=== PATIENT | female | born 1985 | race African-American/Black ===

== ENCOUNTER 2017-03-02 22:10 | Emergency (ER) | payer MEDICAID ==
[~2017-03-02 22:10] MED LIST: MOTRIN600 MG PO; PERCOCET 5/3251 TA1 PO
== END 2017-03-03 00:31 | disposition home or self-care (01) ==
LOC: D.ER 22:10
DX: L02.412 Cutaneous abscess of left axilla (principal); L03.112 Cellulitis of left axilla; L73.9 Follicular disorder, unspecified

== ENCOUNTER 2018-12-01 18:42 | Outpatient (CLI) | payer MEDICAID ==
[2018-12-01 19:44] LABS: BASOPHILS 0.3 % (0-2); EOSINOPHILS 0.8 % (0-7); HEMATOCRIT 30.6 % (36.0-48.0); HEMOGLOBIN 9.7 g/dL (12-16); IMMATURE GRANULOCYTES 2.4 % (0-5); MCH 28.8 pg (26.0-34.0); MCHC 31.7 g/dL (31.0-37.0); MCV 90.8 fL (80.0-100.0); MONOCYTES 5.1 % (2-11); NEUTROPHILS 77.4 % (40-80); RBC 3.37 10x6/uL (4.00-5.40); WBC 11.9 10x3/uL (4.8-10.8)
[2018-12-01 19:51] LABS: PLATELET COUNT 155 10x3/uL (130-400)
[2018-12-01 19:51] LABS: APPEARANCE CLEAR (CLEAR); COLOR YELLOW (YELLOW); SPECIFIC GRAVITY 1.015 (1.005-1.020)
[2018-12-01 19:52] LABS: BILIRUBIN NEGATIVE (NEGATIVE); EPITHELIAL CELLS 0-5 /hpf (0-5); GLUCOSE NEGATIVE (NEGATIVE); KETONE NEGATIVE (NEGATIVE); NITRITE NEGATIVE (NEGATIVE); PROTEIN NEGATIVE (NEGATIVE); RED CELLS - URINE NONE SEEN /hpf (0-5); UROBILINOGEN NORMAL (NORMAL); WHITE CELLS - URINE 0-5 /hpf (0-5)
== END 2018-12-02 10:00 | disposition home or self-care (01) ==
LOC: D.LDO 18:42 → D.LD 23:40 → D.LDO 12-02 10:00
PROVIDERS: Obstetrics & Gynecology
DX: O26.893 Other specified pregnancy related conditions, third trimester (principal); Z3A.30 30 weeks gestation of pregnancy

== ENCOUNTER 2018-12-22 18:54 | Outpatient (CLI) | payer MEDICAID ==
[2018-12-22 19:38] LABS: APPEARANCE CLEAR (CLEAR); BILIRUBIN NEGATIVE (NEGATIVE); COLOR YELLOW (YELLOW); GLUCOSE NEGATIVE (NEGATIVE); KETONE NEGATIVE (NEGATIVE); NITRITE NEGATIVE (NEGATIVE); PROTEIN NEGATIVE (NEGATIVE); SPECIFIC GRAVITY 1.015 (1.005-1.020); UROBILINOGEN NORMAL (NORMAL)
[2018-12-22 19:40] LABS: BACTERIA FEW /hpf (NONE SEEN); RED CELLS - URINE 0-5 /hpf (0-5); WHITE CELLS - URINE 0-5 /hpf (0-5)
[2018-12-22 20:09] LABS: UDS - AMPHET NEGATIVE QUAL (NEGATIVE); UDS - BARB NEGATIVE QUAL (NEGATIVE); UDS - BENZO NEGATIVE QUAL (NEGATIVE); UDS - COCAINE NEGATIVE QUAL (NEGATIVE); UDS - OPIATE NEGATIVE QUAL (NEGATIVE); UDS - PCP NEGATIVE QUAL (NEGATIVE); UDS - THC NEGATIVE QUAL (NEGATIVE)
[2019-01-03 21:28] VITALS: BMI 43.3
== END 2018-12-22 22:19 | disposition home or self-care (01) ==
LOC: D.LDO 18:54
PROVIDERS: Obstetrics & Gynecology
DX: O26.893 Other specified pregnancy related conditions, third trimester (principal); Z3A.33 33 weeks gestation of pregnancy; R10.30 Lower abdominal pain, unspecified

== ENCOUNTER 2019-01-02 22:09 | Inpatient (IN) | payer MEDICAID ==
[~2019-01-02] VITALS: Ht 154.9 cm; Wt 104.1 kg
[2019-01-02] MEDS ORDERED: PRENATAL VIT (22:24)
--- NOTE | 2019-01-02 23:10 | NUR ---
HEART TONES OBTAINED BY ERP AT 154.
--- NOTE | 2019-01-02 23:49 | NUR ---
[facility] WALKER LEYVA #[id number] HERE FOR REPORT.
[2019-01-03] VITALS (17 sets, daily range): BP systolic 113–163; BP diastolic 70–101; Ht 154.9 cm; Wt 104.1 kg
[2019-01-03 00:32] LABS: HEMATOCRIT 34.3 % (36.0-48.0); HEMOGLOBIN 11.3 g/dL (12-16); LYMPHOCYTES 10.2 % (15-50); MCH 28.2 pg (26.0-34.0); MCHC 32.9 g/dL (31.0-37.0); MCV 85.5 fL (80.0-100.0); MEAN PLATELET VOLUME 10.8 fL (7.4-10.4); NEUTROPHILS 82.9 % (40-80); PLATELET COUNT 214 10x3/uL (130-400); RBC 4.01 10x6/uL (4.00-5.40); RDW 13.8 % (11.5-14.5); WBC 12.4 10x3/uL (4.8-10.8)
--- NOTE | 2019-01-03 01:00 | NUR ---
REPORT CALLED TO L&D NURSE ROBERT MILLS.
[2019-01-03 06:39] LABS: HEMATOCRIT 34.5 % (36.0-48.0); HEMOGLOBIN 11.1 g/dL (12-16); MCH 28.2 pg (26.0-34.0); MCHC 32.2 g/dL (31.0-37.0); MEAN PLATELET VOLUME 11.6 fL (7.4-10.4); PLATELET COUNT 253 10x3/uL (130-400); RBC 3.94 10x6/uL (4.00-5.40); RDW 14.1 % (11.5-14.5); WBC 14.2 10x3/uL (4.8-10.8)
[2019-01-03 06:41] LABS: MCV 87.6 fL (80.0-100.0)
[2019-01-03 06:52] LABS: INR 1.18 (0.85-1.17); PROTIME 14.5 SECONDS (11.6-15.0)
[2019-01-03 06:53] LABS: APTT 28.1 SECONDS (22.8-39.4)
[2019-01-03 07:47] LABS: LYMPHOCYTES 8 % (15-50); MONOCYTES 5 % (2-11); NEUTROPHILS 87 % (40-80); PLATELET ESTIMATE NORMAL
--- NOTE | 2019-01-03 08:20 | NUR ---
received pt to labor and delivery post section by dr. brown. see flowsheet. pt has large white dressing over bikini line incision, c/d/i. ice pack placed over gown to incision. abdomen palpates soft. fundus firm, u/1, small rubra lochia, no clots expressed. pt has collins cath in place with 400 ml's dark yellow urine noted in urometer. pt provided with incentive spirometer, with instructions on use. pt also coughing and deep breathing exercises well. pt states she is not in pain at this time. medications reviewed with pt. pt requests ice water, served. sr up x 2, call light and phone within reach.
[2019-01-03 08:47] LABS: UDS - AMPHET POSITIVE QUAL (NEGATIVE); UDS - BARB NEGATIVE QUAL (NEGATIVE); UDS - BENZO NEGATIVE QUAL (NEGATIVE); UDS - COCAINE NEGATIVE QUAL (NEGATIVE); UDS - OPIATE NEGATIVE QUAL (NEGATIVE); UDS - PCP NEGATIVE QUAL (NEGATIVE); UDS - THC NEGATIVE QUAL (NEGATIVE)
--- NOTE | 2019-01-03 09:00 | NUR ---
right ac saline lock dc'd with cath intact.
--- NOTE | 2019-01-03 09:00 | NUR ---
fundus firm, u/1, small rubra lochia, no clots. abdomen palpates soft. pt denies sob or difficulty breathing. collins cath noted to have 600 ml's total urine output, dark yellow urine noted in urometer. srup x 2, call light and phone within reach.
--- NOTE | 2019-01-03 09:30 | NUR ---
fundus firm, u/1, small rubra lochia, no clots expressed. pericare done with warm wet washcloths, towels/chux changed. pt repositioned from her left tilt tilt to her right, pillows placed behind back for support and comfort. pt denies sob or difficulty breathing. sr up x 2, call light and phone within reach. pt's mother at bedside.
[2019-01-03 10:03] LABS: APPEARANCE CLEAR (CLEAR); BILIRUBIN NEGATIVE (NEGATIVE); COLOR DK YELLOW (YELLOW); GLUCOSE NEGATIVE (NEGATIVE); KETONE LARGE mg/dL (NEGATIVE); NITRITE NEGATIVE (NEGATIVE); PROTEIN TRACE mg/dL (NEGATIVE); SPECIFIC GRAVITY 1.015 (1.005-1.020)
[2019-01-03 10:05] LABS: BACTERIA MODERATE /hpf (NONE SEEN); EPITHELIAL CELLS 0-5 /hpf (0-5); MUCUS <1+ /lpf (NONE SEEN); RED CELLS - URINE 0-5 /hpf (0-5); WHITE CELLS - URINE OCC /hpf (0-5)
--- NOTE | 2019-01-03 11:00 | NUR ---
fundus firm, u/2, small rubra lochia, no clots exressed. abdomen palpates soft, pt denies nausea, denies sob, and denies difficulty breathing. clear liquid diet served by dietary. pt awake and sitting up in the bed. incentive spirometer encouraged and pt demonstrates well, pt does coughing and deep breathing x 2. large grape juice served per pt's requests. sr up x 2, call light and phone within reach.
[2019-01-03 12:28] LABS: BASOPHILS 0.3 % (0-2); EOSINOPHILS 0 % (0-7); HEMATOCRIT 31.6 % (36.0-48.0); HEMOGLOBIN 10.4 g/dL (12-16); IMMATURE GRANULOCYTES 0.8 % (0-5); LYMPHOCYTES 5.7 % (15-50); MCH 28.3 pg (26.0-34.0); MCHC 32.9 g/dL (31.0-37.0); MCV 86.1 fL (80.0-100.0); MEAN PLATELET VOLUME 11.4 fL (7.4-10.4); MONOCYTES 6.3 % (2-11); NEUTROPHILS 86.9 % (40-80); PLATELET COUNT 224 10x3/uL (130-400); RBC 3.67 10x6/uL (4.00-5.40); RDW 14.1 % (11.5-14.5)
[2019-01-03 12:30] LABS: WBC 19.4 10x3/uL (4.8-10.8)
--- NOTE | 2019-01-03 15:00 | NUR ---
to pt's room, pt is resting with eyes closed, pt awakened, states she is not hurting at this time. served fresh ice water per her request. fundus firm, u/1, small rubra lochia, no clots expelled. pericare done with warm wet washcloths, towels/chux changed. pt denies sob or difficulty breathing. pt's right eye continues to swollen, and various cuts/abrasions/bruises noted all over body. pt's demeanor very quiet, pt soft spoken, and answers questions in yes/no responses, pt is a poor historian. srup x 2, call light and phone within reach.
--- NOTE | 2019-01-03 17:53 | NUR ---
report of h/h, platelet counts, am/noon given to dr. brown. report of bp readings given to md. md questioning if pt was on home bp medications, pt denies diagnosis of high bp, and states she has never been on bp medications at home. md made aware of what pt has said. telephone order to run pih labwork, and to start labetalol 100 mg one po tid, and report bp greater than 155/[address] brown.
--- NOTE | 2019-01-03 17:59 | NUR ---
lab notified of stat draw.
--- NOTE | 2019-01-03 18:45 | NUR ---
FUNDUS FIRM, U/1, SMALL RUBRA LOCHIA, NO CLOTS. PERICARE DONE WITH WARM WET WASHCLOTHS, TOWELS/PERIPADS CHANGED. LOPEZ CATH EMPTIED WITH 1000 ML TOTAL URINE OUTPUT, DARK YELLOW URINE NOTED. ABDOMEN PALPATES SOFT. FRESH ICE PACK PLACED OVER GOWN TO INCISION, BANDAGE REMAINS, C/D/I. SMALL ICE PACK PROVIDED FOR PT TO USE ON RIGHT ORBITAL AREA, WHICH IS MORE SWOLLEN AND PURPLE THAN HER LEFT, WHICH IS SWOLLEN AND PURPLE WELL. PT HAS CLEAR LIQUID TRAY ON BEDSIDE TABLE, HAS EATEN APPROX 75%. PT DENIES SOB, OR DIFFICULTY BREATHING. PT DENIES ALL OTHER NEEDS AT THIS TIME. SR UP X2, CALL LIGHT AND PHONE WITHIN REACH.
[2019-01-03 19:00] LABS: BASOPHILS 0.2 % (0-2); EOSINOPHILS 0.1 % (0-7); HEMATOCRIT 34.3 % (36.0-48.0); HEMOGLOBIN 11.2 g/dL (12-16); IMMATURE GRANULOCYTES 0.3 % (0-5); LYMPHOCYTES 7.2 % (15-50); MCH 28.6 pg (26.0-34.0); MCHC 32.7 g/dL (31.0-37.0); MCV 87.5 fL (80.0-100.0); MONOCYTES 8.1 % (2-11); NEUTROPHILS 84.1 % (40-80); PLATELET COUNT 229 10x3/uL (130-400); RBC 3.92 10x6/uL (4.00-5.40); RDW 14.2 % (11.5-14.5); WBC 16.9 10x3/uL (4.8-10.8)
--- NOTE | 2019-01-03 19:07 | NUR ---
BEDSIDE SHIFT REPORT COMPLETED WITH ROBERT AL AT THIS TIME.
--- NOTE | 2019-01-03 19:12 | NUR ---
ADMISSION HISTORY COMPLETED AT THIS TIME.
--- NOTE | 2019-01-03 19:12 | NUR ---
PATIENT LYING IN BED WITH EYES CLOSED, FRESH ICE PACK PLACED TO ABDOMEN, ICE PACK REMAINS IN PLACE TO RIGHT SIDE OF FACE DUE TO SWELLING AND BRUISES. ICE WATER AND APPLE JUICE PROVIDED PER PT REQUEST. PT RATES PAIN 7/10, ENCOURAGED TO USE MANAGER PERSONAL. BED REMAINS LOCKED IN LOW POSITION, SIDE RAILS UPX2, CALL THOMSON AND TRAY TABLE IN REACH. WILL CONTINUE TO MONITOR.
[2019-01-03 19:33] LABS: ALBUMIN 2.2 g/dL (3.4-5.0); ALKALINE PHOSPHATASE 150 U/L (46-116); ALT (SGPT) 40 U/L (10-68); BILIRUBIN - TOTAL 0.85 mg/dL (0.2-1.3); CALC OSMOLALITY 274 mosm/kg (275-300); CALCIUM 8.2 mg/dL (8.5-10.1); CARBON DIOXIDE 19.2 mmol/L (21.0-32.0); CHLORIDE - SERUM 104 mmol/L (98-107); CREATININE - SERUM 0.8 mg/dL (0.6-1.3); GLUCOSE 106 mg/dL (74-106); POTASSIUM - SERUM 3.1 mmol/L (3.5-5.1); PROTEIN - SERUM 5.9 g/dL (6.4-8.2); SODIUM 139 mmol/L (136-145); UREA NITROGEN 5 mg/dL (7-18); URIC ACID 8.8 mg/dL (2.6-7.2); eGFR NON AFRICAN AMERICAN 89 mL/min (90-120)
--- NOTE | 2019-01-03 21:28 | NUR ---
PATIENT LYING IN A RIGHT TILT, BOTH EYES NOTED TO BE SWOLLEN AND BRUISED, ICE PACK REMAINS TO RIGHT SIDE OF FACE. LOW TRANSVERSE ABDOMINAL DRESSING NOTED TO BE CLEAN DRY AND INTACT. FUNDUS ML/-2/FIRM AND BLEEDING NOTED TO BE SMALL WITH ONE DIME SIZED CLOT. SCD BOOTS REMAIN IN PLACE HOOKED UP TO A WORKING MACHINE. IV TO LEFT AC INFUSING PER MD ORDER. SURGICAL ASST AVAILABLE AND LOPEZ CATHETER IN PLACE, DRAINING TO GRAVITY. BED REMAINS LOCKED IN LOW POSITION, SIDE RAILS UPX2, CALL THOMSON,SURGICAL ASST BUTTON AND TRAY TABLE IN REACH.
--- NOTE | 2019-01-03 21:28 | NUR ---
PATIENT LYING IN BED WITH EYES CLOSED, EASILY AROUSED TO VERBAL, RATES HER PAIN 7/10. PT ENCOURAGED TO USE GAS PIPE LAYER FOR PAIN CONTROL. SHIFT ASSESSMENT AND ADMISSION HISTORY COMPLETED AT THIS TIME. SEE FLOWSHEETS.
--- NOTE | 2019-01-03 21:40 | NUR ---
NEW 1000ML BAG OF NS WITH 20UNITS OF PITOCIN HUNG AT 125ML/HR PER MD ORDERS AT THIS TIME, SEE EMAR.
[2019-01-04] VITALS (8 sets, daily range): BP systolic 114–135; BP diastolic 67–83
--- NOTE | 2019-01-04 00:35 | NUR ---
PT REPOSITIONED TO LEFT TILT. TORADOL 30MG SLOW IVP PER MD ORDERS. 100ML DARK MACY URINE NOTED IN UROMETER. PT DENIES NEEDS, WILL CONTINUE TO MONITOR.
--- NOTE | 2019-01-04 02:31 | NUR ---
LABETALOL 100MG PO ADMINISTERED PO PER MD ORDERS. PERICARE PERFORMED, BLEEDING SMALL, RUBRA, ONE STRINGY DIME SIZED CLOT NOTED, DRESSING REMAINS CLEAN DRY AND INTACT. PADS CHANGED AND FRESH ICE PACK PLACED TO ABDOMEN, SECOND ICE PACK PROVIDED FOR PATIENTS FACE NEEDED/DESIRED BY PT. BE REMAINS LOW IN LOCKED POSITION, SIDERAILS UPX2, CALL THOMSON AND TRAY TABLE IN REACH. WILL CONTINUE TO MONITOR.
--- NOTE | 2019-01-04 03:50 | NUR ---
PATIENT PROVIDED WITH APPLE JUICE AND PUDDING PER REQUEST. DENIES OTHER NEEDS WILL CONTINUE TO MONITOR.
--- NOTE | 2019-01-04 05:00 | NUR ---
AUBREY RN TO BEDSIDE TO INQUIRE IF PT WANTS TO SEE . PT SNORING, WILL CHECK BACK LATER.
--- NOTE | 2019-01-04 06:44 | NUR ---
toradol 30mg slow ivp at this time. iv fluids complete, d/c'd at this time. nuclear reactor engineer d/c'd as well.
--- NOTE | 2019-01-04 07:00 | NUR ---
REPORT TO AM SHIFT TO ASSUME PATIENT CARE.
[2019-01-04 07:29] LABS: RAPID PLASMA REAGIN Non Reactive (Non Reactive)
--- NOTE | 2019-01-04 07:45 | NUR ---
Pt is awake and alert, rates pain at 2/10. Assessment as charted on flowsheet. Fundus firm upon massage at u/u with light lochia noted, seth pad changed at this time. Arias cath to bedside drain wit 30ml dark natalie urine noted, pt encouraged to increase fluids. SCD bilat as ordered. Bikini incision clean and dry, pt is asking about her baby girl this am and requesting to see her if possible, nursery number provided and will let nursery nurse know of pt request. Pt states her understaning that she would now be asking for pain medicaiton when desired. Side rails up x 2 with phone and call light within her reach.
[2019-01-04 08:26] LABS: BASOPHILS 0.1 % (0-2); EOSINOPHILS 0.2 % (0-7); HEMATOCRIT 32.2 % (36.0-48.0); HEMOGLOBIN 10.4 g/dL (12-16); IMMATURE GRANULOCYTES 0.5 % (0-5); LYMPHOCYTES 8.7 % (15-50); MCHC 32.3 g/dL (31.0-37.0); MCV 86.8 fL (80.0-100.0); MEAN PLATELET VOLUME 11.5 fL (7.4-10.4); MONOCYTES 7.1 % (2-11); NEUTROPHILS 83.4 % (40-80); PLATELET COUNT 227 10x3/uL (130-400); RBC 3.71 10x6/uL (4.00-5.40); RDW 14.3 % (11.5-14.5)
--- NOTE | 2019-01-04 08:30 | NUR ---
Infant taken to room via crib by nursery nurse. pt ask to have time with infant and will call when she is ready to get up from bed.
--- NOTE | 2019-01-04 10:00 | NUR ---
pt calls nursery to come pick in up, Called to room, requesting pain med, she rates at 6/10, also requesting apple juice.
--- NOTE | 2019-01-04 10:40 | NUR ---
Arias cath removed, cath noted to be intact. 200ml dark concentrated urine noted. Pt is able to move herself up to sitting on side of the bed without complaint of dizziness or nausea. Amb to bathroom per self and able to void 200ml without complaint.
--- NOTE | 2019-01-04 10:45 | NUR ---
pt provided with warm wet wash cloths and is able to do seth care. gown changed and assistance given with peripad/briefs. Verbal teaching given along with demonstrating how to use seth pad to cover incision site. Bed linens changed while pt in bathroom. amb back to bed per self and able to position for comfort. side rails up x 2 call light in reach and lights turned down per her request.
--- NOTE | 2019-01-04 11:30 | NUR ---
Pt calls out requesting pain med, states she turned over and now burning at incision site. Rates at 07/30, meds given as charted on emar.
--- NOTE | 2019-01-04 13:00 | NUR ---
RECEIVED REPORT FROM ROBERT PHOENIX. PT SITTING UP IN BED. VISITS WITH PT MOTHER AT THIS TIME. DENIES C/O PAIN OR NEEDS.
--- NOTE | 2019-01-04 14:14 | NUR ---
PT SITTING UP IN BED. VSS. HRRR WITHOUT AUDIBLE MURMUR. BBS CLEAR. BS X 4. ABDOMEN SOFT/SLIGHTLY DISTENDED. PT DENIES PASSING GAS. NO BM YET. PT STATES HAS VOIDED X 1 SINCE LOPEZ REMOVED. ABDOMINAL INCISION WITH NO REDNESS, SWELLING OR DRAINAGE NOTED. PERIPAD CHANGED. FUNDUS FIRM AT U/U. RUBRA LOCHIA SMALL AMT. NO CLOTS NOTED. NEG HOMANS' SIGN. PPP. MILD NON PITTING EDEMA NOTED TO BLE. SL TO LEFT AC. SITE CLEAR. PT STATES PAIN OF "5" ON 0-10 PAIN SCALE. DECLINES PAIN MED AT THIS TIME. PT OOB AND AMB TO BR TO VOID. VOIDS 300 ML OF CONCENTRATED YELLOW URINE. PERICARE DONE PER PT. PT BACK TO BED. GRCAY ACTIVITY WELL. SR UP X 2. CALL LIGHT IN REACH. PT NOTED TO HAVE BRUISING TO FACE, BOTH EYES. LEFT AND RIGHT ARMS, LEFT THIGH, LEFT LOWER LEG, RIGHT LOWER LEG, ABDOMEN. ABRASIONS NOTED TO FACE, ABDOMEN BOTH LOWER LEGS.
--- NOTE | 2019-01-04 15:08 | NUR ---
PT REQUESTS AND RECEIVES ORANGE JUICE.
--- NOTE | 2019-01-04 15:38 | NUR ---
PT C/O PAIN "ALL OVER" OF "7" ON 0-10 PAIN SCALE. MOTRIN 600MG AND NORCO 10/325 GIVEN PO ORDERED. PT INSTRUCTED ON MEDS. VERBALIZES UNDERSTANDING.
--- NOTE | 2019-01-04 16:30 | NUR ---
PT SITTING UP IN BED. VISITS WITH MOM. DENIES PAIN. STATES PAIN NOW "0" ON 0-10 PAIN SCALE. DENIES NEEDS OR C/O.
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
--- NOTE | 2019-01-04 18:00 | NUR ---
PT SITTING UP IN BED. VISITS WITH MOM. DENIES PAIN OR NEEDS. PT MOM STATES PATIENT HAS BEEN AMBULATING AROUND ROOM. PT DENIES PASSING GAS YET.
--- NOTE | 2019-01-04 19:00 | NUR ---
REPORT GIVEN TO ON-COMING SHIFT.
--- NOTE | 2019-01-04 19:46 | NUR ---
PT. LYING ON BACK WITH HOB AT 30 DEGREES. FEEDING BOTTLE. BREATH SOUNDS CLEAR AND BOWEL SOUNDS ACTIVE. PT. DENIES PASSING FLATUS. IV SALINE LOCK IN LT AC. NO REDNESS NOR EDEMA NOTED AT SITE. PT. REPORTS THAT SHE HAS BEEN USING INCENTIVE SPIROMETER AND ACCOMPLISHING UP TO 1500 ON METER. ENCOURAGED TO COUGH AND DEEP BREATH. BRUISING NOTED ON RT KNEE AND LET CALF AND KNEE. BOTH OF PT'S EYES ARE BLACKENED. DENIES ANY PAIN AT THIS TIME. ONE FEMALE IN ROOM WITH PT. DENIES ANY PAIN IN LOWER EXTREMITIES.
--- NOTE | 2019-01-04 20:40 | NUR ---
DR. GUADARRAMA CALLED AND INFORMED OF PT'S BPS THROUGHOUT THE DAY AND MOST CURRENT. INQUIRED IF MD WANTED SCHEDULED DOSE OF LABETALOL GIVEN. MD STATES TO HOLD AT THIS TIME.
--- NOTE | 2019-01-04 20:55 | NUR ---
HOLDING AT PRESENT. DENIES ANY NEEDS AT THIS TIME. 3 VISITORS IN ROOM AT PRESENT.
--- NOTE | 2019-01-04 22:11 | NUR ---
PT. FEEDING INFANT AT PRESENT. STATES SHE IS FEELING SLEEPING. ABD. INCISION NOTED WITH KELLIE PAD COVERING. INCISION WITHOUT REDNESS NOR EDEMA OR DRAINAGE. DENIES ANY NEEDS AT THIS TIME. INFORMED PT. TO CALL THIS NURSE WHEN SHE WAS READY TO SLEEP FOR THE NIGHT SO SCDS SLEEVES COULD BE REPLACED ON LEGS AND CONNECTED TO PUMP. PT. STATED UNDERSTANDING.
--- NOTE | 2019-01-04 22:38 | NUR ---
INTO ROOM FOR PT. ASSESSMENT. RATES PAIN A 0 OF 10 ON PAIN SCALE. IN OPEN CRIB AT BEDSIDE. VITAL SIGNS OBTAINED. PT. STATES SHE IS READY TO SLEEP. SCD SLEEVES APPLIED TO LOWER LEGS AND PUMP FUNCTIONAL. CAUTIONED PT. NOT TO TRY AND GET UP WITH SCDS STILL CONNECTED TO PUMP. PT. STATES UNDERSTANDING. IV SALINE LOCK IN LT AC AREA FLUSHED WITH NORMAL SALINE.
--- NOTE | 2019-01-05 00:55 | NUR ---
PT. AWAKE AND INTERVALS. NBN NURSE IN ROOM CHECKING VITAL SIGNS ON . PT. DENIES ANY NEEDS.
--- NOTE | 2019-01-05 02:47 | NUR ---
INFANT TO NBN PER NBN STAFF. PT. LYING ON BACK WITH EYES CLOSED AND RESPIRATIONS UNLABORED.
[2019-01-05 04:27] VITALS: BP 124/80
--- NOTE | 2019-01-05 04:27 | NUR ---
INTO ROOM FOR VITAL SIGN ASSESSMENT. PT. LYING IN RT TILT WITH HOB AT 30 DEGREES. AWAKENS BRIEFLY.
--- NOTE | 2019-01-05 06:48 | NUR ---
LYING ON BACK WITH EYES CLOSED. RESPIRATIONS UNLABORED.
--- NOTE | 2019-01-05 07:15 | NUR ---
DR. GUADARRAMA ON UNIT, TO ROOM TO SPEAK WITH PT.
[2019-01-05 07:25] VITALS: BP 144/89
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
--- NOTE | 2019-01-05 07:25 | NUR ---
MD BO ARDON, VERBAL ORDER RECEIVED THAT PT MAY BE DISCHARGED HOME TODAY, IF BABY IS DISCHARGED HOME.
--- NOTE | 2019-01-05 08:30 | NUR ---
PT REQUESTS TO GET UP TO THE BATHROOM, AND THEN TO TAKE A SHOWER. CLEAN LINENS/SHOWER ITEMS, AND PERIPADS/PANTIES PROVIDED, ALONG WITH TOOTHBRUSH/PASTE. PT ASSISTED UP TO BR, VOIDS PER SELF, UNMEASURED VOID, YELLOW URINE, NO CLOTS NOTED. PT TO SHOWER AT THIS TIME. BED LINENS CHANGED WHILE PT IS IN SHOWER. CALL LIGHT WITHIN REACH FOR SHOWER. SR UP X 2, CALL LIGHT AND PHONE WITHIN REACH.
--- NOTE | 2019-01-05 09:00 | NUR ---
AFTER SHOWER, PT AMBULATORY IN ROOM AND DRESSED IN OWN CLOTHING. PT THEN BACK TO BED. DENIES ALL NEEDS AT THIS TIME. SR UP X2, CALL LIGHT AND PHONE WITHIN REACH.
--- NOTE | 2019-01-05 11:45 | NUR ---
DIETARY SERVES LUNCH TRAY, PT DENIES ALL NEEDS AT THIS TIME.
--- NOTE | 2019-01-05 14:00 | NUR ---
TO PT'S ROOM, FAMILY MEMBERS AT BEDSIDE. PT DENIES ALL NEEDS AT THIS TIME. ANTICIPATING DISCHARGE THIS AFTERNOON. SR UP X2, CALL LIGHT AND PHONE WITHIN REACH. PT CONTINUES TO USE I/S WELL.
[2019-01-05 15:10] VITALS: BP 113/71
--- NOTE | 2019-01-05 15:15 | NUR ---
PT IS SITTING UP IN THE BED, HOLDING , FEEDING BOTTLE TO . PT STATES SHE IS READY TO GO HOME, AND ASKS IF SHE CAN HAVE BOTH THE NORCO AND IBUPROFEN FOR PAIN BEFORE SHE GOES. SEE EMAR FOR ALL MEDS ADM BY THIS RN. EXPLAINED TO PT WILL GET D/C PAPERWORK READY. PT SERVED DR. BESS AT HER REQUEST. PT DENIES ALL OTHER NEEDS AT THIS TIME. SR UP X2, CALL LIGHT AND PHONE WITHIN REACH.
--- NOTE | 2019-01-05 15:40 | NUR ---
PT DRESSED AND READY FOR DISCAHRGE, PT HOLDING NOW. PT'S MOTHER IN ROOM WELL. DISCHARGE INSTRUCTIONS EXPLAINED TO PT, COPIES PROVIDED, ALONG WITH PP INSTRUCTION SHEET, AND C/S DISCHARGE EDUCATION SHEETS, AND PRESCRIPTIONS GIVEN TO PT. PT DENIES ALL QUESTIONS. PREPARING INFANT FOR DISCHARGE. PT DENIES ALL NEEDS OR QUESTIONS.
[2019-01-05] MEDS ORDERED: HYDROCODON-ACE1 EA10 PO (15:51)
[2019-01-05] MEDS ORDERED: IBUPROFEN600 MG PO (15:51)
[2019-01-05] MEDS ORDERED: NORMODYNE / TR100 MG PO (15:52)
[2019-01-07 03:05] LABS: UDSC - AMPHET Positive (Cutoff=1000); UDSC - BARB Negative ng/mL (Cutoff=300); UDSC - BENZO Negative ng/mL (Cutoff=300); UDSC - COC Negative ng/mL (Cutoff=300); UDSC - METH Negative ng/mL (Cutoff=300); UDSC - OPIATES Negative ng/mL (Cutoff=300); UDSC - PCP Negative ng/mL (Cutoff=25); UDSC - PROPOXY Negative ng/mL (Cutoff=300); UDSC - THC Negative ng/mL (Cutoff=50)
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
== END 2019-01-05 16:00 | disposition home or self-care (01) | DRG 786 ==
LOC: D.LDO 22:09 → D.ER 22:09 → D.LD 22:09 → D.LDO 01-03 06:05 → D.LD 01-03 06:06
PROVIDERS: Family Medicine; ADMIT Obstetrics & Gynecology
PROC: 10D00Z1 Extraction of Products of Conception, Low, Open Approach (ICD-10-PCS; principal; 2019-01-03 06:55)
DX: O76 Abnormality in fetal heart rate and rhythm complicating labor and delivery (principal); O60.14X0 Preterm labor third trimester with preterm delivery third trimester, not applicable or unspecified; O10.92 Unspecified pre-existing hypertension complicating childbirth; T74.11XA Adult physical abuse, confirmed, initial encounter; Z3A.35 35 weeks gestation of pregnancy; Z37.0 Single live birth; Y04.2XXA Assault by strike against or bumped into by another person, initial encounter; S40.022A Contusion of left upper arm, initial encounter; S40.021A Contusion of right upper arm, initial encounter; S05.10XA Contusion of eyeball and orbital tissues, unspecified eye, initial encounter

== ENCOUNTER 2019-02-27 06:30 | Day surgery (SDC) | payer MEDICAID ==
[2019-02-25 14:20] LABS: BASOPHILS 0.2 % (0-2); EOSINOPHILS 2.9 % (0-7); HEMATOCRIT 34.8 % (36.0-48.0); HEMOGLOBIN 10.7 g/dL (12-16); IMMATURE GRANULOCYTES 0.1 % (0-5); LYMPHOCYTES 19.5 % (15-50); MCH 26.6 pg (26.0-34.0); MCHC 30.7 g/dL (31.0-37.0); MCV 86.4 fL (80.0-100.0); MEAN PLATELET VOLUME 11.3 fL (7.4-10.4); MONOCYTES 9.1 % (2-11); NEUTROPHILS 68.2 % (40-80); PLATELET COUNT 259 10x3/uL (130-400); RBC 4.03 10x6/uL (4.00-5.40); RDW 13.7 % (11.5-14.5); WBC 9.3 10x3/uL (4.8-10.8)
[~2019-02-27] VITALS: Ht 154.9 cm; Wt 101.2 kg
[~2019-02-27 06:30] MED LIST changes: +HYDROCODON-ACE1 EA10 PO; +IBUPROFEN600 MG PO; +NORMODYNE / TR100 MG PO; +PRENATAL VIT
[2019-02-27 08:17] VITALS: BP 150/104; Ht 154.9 cm; Wt 101.2 kg
[2019-02-27 08:36] LABS: HCG URINE NEGATIVE (NEGATIVE)
--- NOTE | 2019-02-27 12:36 | NUR ---
CONSULTED ANESTHESIA REGARDING PERSISTENT ELEVATED BLOOD PRESSURE. VERBAL ORDERS RECEIVED FROM DR FRAGOSO TO ADMINISTER HYDRALAZINE 5MG X1 IN PACU NOW. MAY REPEAT X1. ORDERS RECEIVED AND IMPLEMENTED. WILL CONTINUE TO MONITOR.
--- NOTE | 2019-02-27 12:55 | NUR ---
PATIENTS MEETS DISCHARGE CRITERIA PER ANESTHESIA. PATIENT'S BLOOD PRESSURE IS 156/102 AND IS AT BASELINE.
--- NOTE | 2019-02-27 13:05 | NUR ---
REC'D FROM RR. FAMILY AT BEDSIDE. ORANGE JUICE BROUGHT TO PT. NO C/O VOICED.
--- NOTE | 2019-02-27 13:35 | NUR ---
BRAD ZULUAGA BROUGHT TO PT. FAMILY AT BEDSIDE. PATIENT UP TO THE BATHROON AND VOIDED WITHOUT DIFFICUKTY.
--- NOTE | 2019-02-27 14:00 | NUR ---
TOLERATED FL TRAY. IV DC'D WITH CATHETER INTACT.WRITTEN AND VERBAL DC INST. GIVEN TO PT. VERBALIZED UNDERSTANDING.
--- NOTE | 2019-02-27 14:30 | NUR ---
DC'D HOME WITH FAMILY VIA PRIVATE VEHICLE. TAKEN TO VEHICLE VIA WC. STABLE AT TIME OF DC.
== END 2019-02-27 14:30 | disposition home or self-care (01) ==
LOC: D.OPS 06:30 → D.PAN 07:30 → D.OPS 09:00
PROVIDERS: ATTEND Obstetrics & Gynecology
DX: Z30.2 Encounter for sterilization (principal); Z01.812 Encounter for preprocedural laboratory examination

== ENCOUNTER 2019-04-03 07:34 | Emergency (ER) | payer MEDICAID ==
[~2019-04-03] VITALS: Ht 154.9 cm; Wt 100.7 kg
[2019-04-03 07:40] VITALS: Ht 154.9 cm; Wt 100.7 kg
[2019-04-03 09:22] VITALS: BP 143/92
== END 2019-04-03 09:22 | disposition home or self-care (01) ==
LOC: D.ER 07:34
DX: R22.9 Localized swelling, mass and lump, unspecified (principal)